=== PATIENT | female | born 1990 | race African-American/Black ===

== ENCOUNTER 2018-10-09 13:56 | Emergency (ER) | payer OTHER ==
[2018-10-09] MEDS ORDERED: predniSONE 20 MG TAB ONE (14:42)
[2018-10-09] MEDS ORDERED: cefTRIAXone\\ROCEPHIN 250 MG VIAL ONE ×2 (14:42→15:10)
[2018-10-09] MEDS ORDERED: cefTRIAXone\\ROCEPHIN 500 MG VIAL ONE (15:10)
== END 2018-10-09 15:55 | disposition home or self-care (01) ==
LOC: ERS 13:56
DX: L03.113 Cellulitis of right upper limb (principal); F17.210 Nicotine dependence, cigarettes, uncomplicated; F41.9 Anxiety disorder, unspecified; E03.9 Hypothyroidism, unspecified; Z79.899 Other long term (current) drug therapy
CPT/HCPCS: 96372; J0696; J7512

== ENCOUNTER 2018-10-11 15:18 | Emergency (ER) | payer OTHER | END 2018-10-11 16:06 | disposition home or self-care (01) | LOC: ERS 15:18 | DX: R00.2 Palpitations (principal); T38.0X5A Adverse effect of glucocorticoids and synthetic analogues, initial encounter; T36.8X5A Adverse effect of other systemic antibiotics, initial encounter; E03.9 Hypothyroidism, unspecified; F41.9 Anxiety disorder, unspecified; Z79.899 Other long term (current) drug therapy | CPT/HCPCS: 99283 ==

== ENCOUNTER 2018-12-04 06:32 | Outpatient (CLI) | payer OTHER ==
--- NOTE | 2018-12-04 07:50 | ULT ---
EXAM: Pelvic ultrasound HISTORY: Right lower quadrant abdominal/pelvic pain for 2 months COMPARISON: None TECHNIQUE: Multiple grayscale and color Doppler images were obtained in a transabdominal and transvag inal pelvic ultrasound. Spectral analysis of the Doppler waveforms of the ovaries were performed. FINDINGS: CERVIX: No evidence of nabothian cysts. UTERUS: Normal in size without focal abnormality. ENDOMETRIAL STRIPE: 8 mm. A tiny amount of free fluid is seen in the pelvis. RIGHT OVARY: Normal flow without focal mass. A nonspecific 3 mm echogenic focus is seen in the right ovary. LEFT OVARY: Normal flow without focal mass. IMPRESSION: No significant pelvic abnormality
== END 2018-12-04 06:33 | disposition home or self-care (01) ==
LOC: BICULT 06:32
PROVIDERS: ATTEND Internal Medicine
DX: Z01.89 Encounter for other specified special examinations (principal); R10.31 Right lower quadrant pain
CPT/HCPCS: 76856